=== PATIENT | female | born 1980 | race Two or more races ===

== ENCOUNTER 2023-04-29 18:14 | Emergency (ER) | payer BC, SELFPAY ==
[2023-04-29] VITALS (7 sets, daily range): BP systolic 103–116; BP diastolic 75–80; PULSE 86–96; RESP 14–20; TEMP 36.6; O2SAT 98–100
--- NOTE | ~2023-04-29 | XR_ITS ---
EXAMINATION: XR chest 2V Exam Date/Time: 04/29/2023 18:50 CDT HISTORY: Palpitations, chest pain Comparison: 07/26/2015. RESULT: Lines, tubes, and devices: Cholecystectomy clips. Lungs and pleura: Clear. Cardiomediastinal silhouette: Stable. Other: No acute osseous or upper abdominal finding. IMPRESSION: No acute cardiopulmonary process. Reviewed, dictated and finalized at location K.
--- NOTE | 2023-04-29 18:22 | ECG_ITS ---
Measurements Intervals Maurice Rate: 88 P: 47 WV: 147 QRS: 64 QRSD: 74 T: 64 QT: 342 QTc: 415 Interpretive Statements SINUS RHYTHM NONSPECIFIC T-WAVE ABNORMALITY ABNORMAL ECG NO PREVIOUS ECG AVAILABLE FOR COMPARISON Electronically Signed On 04-30-2023 9:16:14 CDT by Jose Manuel Villalba M.D.
[2023-04-29 18:55] LABS: Basophils Percent Auto 0.3 % (0.2-1.2); Eosinophils Absolute Auto 0.2 K/mm3 (0-0.3); Eosinophils Percent Auto 1.8 % (0-4.4); Hemoglobin 11.5 g/dL (12.0-15.0); Immature Granulocyte Absolute 0.03 K/mm3 (0.00-0.031); Immature Granulocyte Percent A 0.3 % (0-0.5); Lymphocytes Absolute Auto 2.68 K/mm3 (0.9-3.2); Lymphocytes Percent Auto 29.6 % (18.3-44.2); Mean Corpuscular HGB Conc 31.9 g/dl (32-36); Mean Corpuscular Hemoglobin 24.6 pg (26-34); Mean Corpuscular Volume 77.1 fl (80-100); Mean Platelet Volume 9.3 fl (7.4-10.4); Monocytes Absolute Auto 0.6 K/mm3 (0.1-0.6); Monocytes Percent Auto 6.7 % (2.6-8.5); Neutrophils Absolute Auto 5.6 K/mm3 (1.3-6.7); Neutrophils Percent Auto 61.3 % (45.5-73.1); Platelet Count Result 328 k/mm3 (150-375); Red Blood Count 4.67 M/mm3 (4.2-5.4); Red Cell Distribution Width 13.5 % (11.5-14.5); White Blood Count 9.1 K/mm3 (4.5-10.0)
[2023-04-29 19:07] LABS: Alanine Aminotransferase 16 U/L (6-35); Albumin Level 4.3 g/dL (3.5-5.1); Alkaline Phosphatase 96 U/L (38-126); Anion Gap 11 mmol/L (8-16); Aspartate Amino Transferase 24 U/L (14-36); Bilirubin,Total 0.5 mg/dL (0.2-1.3); Blood Urea Nitrogen 6 mg/dL (7-17); Calcium 9.3 mg/dL (8.4-10.2); Carbon Dioxide 23 mmol/L (22-30); Chloride 102 mmol/L (98-107); Estimated Glomerular Filt Rate > 60; Glucose 93 mg/dL (65-110); Lipase 68 U/L (23-300); Potassium 3.9 mmol/L (3.4-5.0); Sodium 136 mmol/L (137-145)
[2023-04-29 19:10] LABS: Prothrombin Time 13.5 Seconds (11.1-14.7)
[2023-04-29 19:11] LABS: Partial Thromboplastin Time 28.4 SECONDS (22.3-36.8)
[2023-04-29 19:17] LABS: Troponin I < 0.012 ng/mL (0.000-0.034)
--- NOTE | 2023-04-29 19:55 | ED.GENADULT ---
HPI - General Adult General Chief complaint: Arrhythmia/Palpitations Stated complaint: palpatations Time Seen by Provider: 04/29/23 19:19 History of Present Illness HPI narrative: Patient 42-year-old female who presents emergency department with chief complaint of chest pain. Patient states that since Friday she has been having a discomfort feeling in the middle of her chest but then radiates to her back. Patient reports no radiation to the arm or to the jaw denies diaphoresis denies shortness of breath. Patient reports no prior history of cardiac disease reports no prior history of stress test or cardiac catheterization. Patient reports that today she decided to go to urgent care as the pain was worse today and they sent her the patient to the emergency department for further evaluation. Related Data Home Medications Medication Instructions Recorded Confirmed ergocalciferol (vitamin D2) 1,250 04/29/23 04/29/23 mcg (50,000 unit) capsule montelukast 10 mg tablet mg 04/29/23 phentermine 37.5 mg tablet mg 04/29/23 Allergies Allergy/AdvReac Type Severity Reaction Status Date / Time No Known Allergies Allergy Verified 04/29/23 19:20 Review of Systems Review of Systems: A 10 system review of systems was completed on the patient and is negative except for what is stated in the HPI. Nursing and ancillary documentation was reviewed. Exam Narrative: GENERAL: Well-appearing, well-nourished, and in no acute distress. HEAD: Normocephalic, atraumatic. EYES: PERRLA and EOMI. ENT: Nares clear, no rhinorrhea or epistaxis. Mucous membranes moist. NECK: Supple. CHEST: Clear to auscultation. No respiratory distress. HEART: Regular rate and rhythm. No murmur heard. Normal peripheral pulses. ABDOMEN: Soft, nontender, nondistended, normal active bowel sounds. EXTREMITIES: Normal range of motion. No edema. SKIN: Warm, dry, no rash. NEURO: No focal deficits. Alert and oriented x3. PSYCH: Normal mood and affect. Course Vital Signs Vital signs: Vital Signs Temperature 36.6 C 04/29/23 18:20 Pulse Rate 96 04/29/23 18:20 Respiratory Rate 16 04/29/23 18:20 Blood Pressure 113/80 04/29/23 18:20 Pulse Oximetry 100 04/29/23 18:20 Temperature 36.6 C 04/29/23 18:20 Pulse Rate 90 04/29/23 21:46 Respiratory Rate 17 04/29/23 21:46 Blood Pressure 113/75 04/29/23 21:46 Pulse Oximetry 100 04/29/23 21:46 Medical Decision Making MDM Narrative Medical decision making narrative: Differential diagnosis includes chest wall pain, acute coronary syndrome, unstable angina, Chest x-ray showed no focal infiltrate EKG showed no acute ischemic changes Laboratory studies were obtained which showed a normal CBC normal CMP normal lipase troponin was negative for 0-hour and 3-hour plus the patient has also been having discomfort for several days Patient is feeling much better at this time there is a significant reproducible component to the pain this time is felt the patient is safe to be discharged home for outpatient follow-up patient was instructed return precautions Vital Signs Vital Signs: Vital Signs Temperature 36.6 C 04/29/23 18:20 Pulse Rate 96 04/29/23 18:20 Respiratory Rate 16 04/29/23 18:20 Blood Pressure 113/80 04/29/23 18:20 Pulse Oximetry 100 04/29/23 18:20 Temperature 36.6 C 04/29/23 18:20 Pulse Rate 90 04/29/23 21:46 Respiratory Rate 17 04/29/23 21:46 Blood Pressure 113/75 04/29/23 21:46 Pulse Oximetry 100 04/29/23 21:46 Lab Data 04/29/23 18:47 04/29/23 18:47 Labs: Lab Results 04/29/23 04/29/23 Range/Units 18:47 21:47 WBC 9.1 (4.5-10.0) K/mm3 RBC 4.67 (4.2-5.4) M/mm3 Hgb 11.5 L (12.0-15.0) g/dL Hct 36.0 L (37.0-47.0) % MCV 77.1 L (80-100) fl MCH 24.6 L (26-34) pg MCHC 31.9 L (32-36) g/dl RDW 13.5 (11.5-14.5) % Plt Count 328 (150-375) k/mm3 MPV 9.
--- NOTE | 2023-04-29 19:58 | PC.NURSE ---
Pt given SL nitro tab as ordered, CP prior was 9. VSS.
[2023-04-29] MEDS: NITROGLYCERIN SL 0.4 MG TABLET SUBLINGUAL (19:59)
[2023-04-29] MEDS: MORPHINE SULFATE (*CRX) 4 MG/ML INJ IV PUSH (19:59)
[2023-04-29 22:16] LABS: Troponin I < 0.012 ng/mL (0.000-0.034)
== END 2023-04-29 23:10 | disposition home or self-care (01) ==
PROVIDERS: Student in an Organized Health Care Education/Training Program; Emergency Provider Emergency Medicine; PCP Family Medicine
DX: R07.89 Other chest pain (principal); R94.31 Abnormal electrocardiogram [ECG] [EKG]
CPT/HCPCS: 36415; 71046; 80053; 83690; 84484; 85025; 85610; 85730; 93005; 96374; 99284; A9270; J2270

== ENCOUNTER 2025-05-05 08:50 | Outpatient (CLI) | payer SELFPAY ==
--- NOTE | ~2025-05-05 | MM_ITS ---
EXAMINATION: MM screening tonja BI w anthony HISTORY: Screening TECHNIQUE: Craniocaudal and mediolateral oblique 3-D tomosynthesis images were obtained and synthetic 2-D images were generated. CAD analysis was submitted and interpreted. COMPARISON: No prior mammogram is available for comparison at this institution. BREAST PARENCHYMAL COMPOSITION: There are scattered areas of fibroglandular density. FINDINGS: There is no evidence of suspicious mass, calcification, or architectural distortion in either breast to suggest malignancy. IMPRESSION: 1. No mammographic evidence of malignancy. Recommend routine screening mammography in one year. BI-RADS Category 1: Negative Reviewed, dictated and finalized at location Q. IMPRESSION: 1. No mammographic evidence of malignancy. Recommend routine screening mammogra phy in one year. BI-RADS Category 1: Negative
== END 2025-05-05 08:51 | disposition home or self-care (01) ==
PROVIDERS: PCP Family Medicine; Visit Provider Family Medicine
DX: Z12.31 Encounter for screening mammogram for malignant neoplasm of breast (principal)
CPT/HCPCS: 77063; 77067